=== PATIENT | female | born 1970 | race Two or more races ===

== ENCOUNTER 2022-05-17 11:30 | Emergency (ER) | payer OTHER ==
[~2022-05-17] VITALS: Ht 172.7 cm; Wt 72.6 kg
[2022-05-17] MEDS ORDERED: DICLOFENAC SODI75 MG PO (17:50)
== END 2022-05-17 18:21 | disposition home or self-care (01) ==
LOC: ER 11:30
DX: S22.31XA Fracture of one rib, right side, initial encounter for closed fracture (principal); W01.0XXA Fall on same level from slipping, tripping and stumbling without subsequent striking against object, initial encounter; Y93.19 Activity, other involving water and watercraft; Y92.814 Boat as the place of occurrence of the external cause